=== PATIENT | female | born 1970 | race Caucasian/White ===

== ENCOUNTER 2016-07-07 09:45 | Emergency (ER) | payer MEDICAID ==
[~2016-07-07 09:45] MED LIST: ADVAIR 25028 BLISTE1 PO; BENADRYL25 M3 PO; CIPRO500 M2 PO; GABAPENTIN300 M1 PO; HYDROCODON-ACE1 EA16 PO; LUTERA-28 TABL1 EACH PO; MACROBID 100 M100 M1 PO; MOBIC7.5 M2 PO; NEURONTIN600 M1 PO; NORCO 10-325 T1 EACH PO; NORCO 5-325 TA1 EACH PO; PENICILLIN V P500 M1 PO; PERCOCET 5-3251 EACH PO; PREDNISONE20 M1 PO; PYRIDIUM100 M2 PO; SINGULAIR10 M1 PO; TUMS PO; VALIUM5 M1 PO; VENTOLIN HFA18 G2 INH; ZOFRAN ODT4 MG PO; ZOFRAN4 M2 PO
[2016-07-07 10:07] LABS: URINE BILIRUBIN NEGATIVE (NEG); URINE BLOOD LARGE (NEG); URINE GLUCOSE (UA) NEGATIVE (NEG); URINE KETONE NEGATIVE (NEG); URINE LEUKOCYTE ESTERASE NEGATIVE (NEG); URINE NITRITE NEGATIVE (NEG); URINE PROTEIN SMALL (NEG)
[2016-07-07 10:08] LABS: URINE APPEARANCE HAZY; URINE COLOR STRAW
[2016-07-07] MEDS ORDERED: PERCOCET 5-3251 EACH PO (10:09)
[2016-07-07 10:14] LABS: URINE RBC 150-200 /[HPF] (0-5); URINE WBC 0 /[HPF] (0-5)
== END 2016-07-07 10:27 ==
LOC: EDMED 09:45
PROVIDERS: Emergency Medicine
DX: N30.10 Interstitial cystitis (chronic) without hematuria (principal); J45.909 Unspecified asthma, uncomplicated; Z87.891 Personal history of nicotine dependence; Z90.49 Acquired absence of other specified parts of digestive tract; Z90.710 Acquired absence of both cervix and uterus; Z98.890 Other specified postprocedural states; Z79.51 Long term (current) use of inhaled steroids